=== PATIENT | female | born 1990 | race Caucasian/White ===

== ENCOUNTER 2017-10-29 17:39 | Inpatient (IN) | payer BC ==
[~2017-10-29] VITALS: Ht 157.5 cm; Wt 97.5 kg
[2017-10-29 17:45] VITALS: BP_SYST 152
[2017-10-29] MEDS ORDERED: MORPHINE 4 MG/ML INJ. SYRINGE IVP ONE (18:00)
[2017-10-29 18:23] LABS: CALCIUM 9.7 mg/dL (8.4-11.0); CREATININE 0.67 mg/dL (0.55-1.30); POTASSIUM 3.8 mmol/L (3.5-5.1)
[2017-10-29 18:24] LABS: BASOPHILS # (AUTO) 0.1 K/uL (0.0-0.2); BASOPHILS % (AUTO) 0.7 % (0.0-2.0); EOSINOPHILS # (AUTO) 0.1 K/uL (0.0-0.4); EOSINOPHILS % (AUTO) 0.6 % (0.0-4.0); HEMATOCRIT 41.7 % (36-48); HEMOGLOBIN 13.9 g/dL (12.0-16.0); LYMPHOCYTES # (AUTO) 2.1 K/uL (1.0-5.5); LYMPHOCYTES % (AUTO) 12.7 % (20.5-51.5); MEAN CORPUSCULAR HEMOGLOBIN 28 pg (27-31); MEAN CORPUSCULAR HGB CONC 33 % (32-36); MEAN CORPUSCULAR VOLUME 83 fL (79.0-98.0); MONOCYTES # (AUTO) 0.6 K/uL (0.0-1.0); MONOCYTES % (AUTO) 3.9 % (1.7-9.3); NEUTROPHILS # (AUTO) 13.4 K/uL (1.8-7.7); NEUTROPHILS % (AUTO) 82.1 % (40.0-70.0); PLATELET COUNT (AUTO) 327 K/uL (130-430); RED BLOOD CELL COUNT(AUTO) 5.01 MIL/uL (4.2-6.2); RED CELL DISTRIBUTION WIDTH 13.5 % (9.0-15.0); WHITE BLOOD COUNT (AUTO) 16.3 K/uL (4.8-10.8)
[2017-10-29 18:28] LABS: TOTAL BILIRUBIN 0.5 mg/dL (0.0-1.0)
[2017-10-29] MEDS ORDERED: cefTRIAXone 1 GM IVPB PREMIX 50 ML IV ONE (19:45)
[2017-10-29 19:50] LABS: BILIRUBIN,URINE NEGATIVE (NEGATIVE); BLOOD, URINE NEGATIVE (NEGATIVE); CLARITY/URINE SL HAZY (CLEAR); COLOR,URINE YELLOW (YELLOW); GLUCOSE,URINE NEGATIVE (NEGATIVE); KETONES,URINE TRACE (NEGATIVE); LEUKOCYTE ESTERASE ,URINE NEGATIVE (NEGATIVE); NITRITE, URINE NEGATIVE (NEGATIVE); PH,URINE 8.5 (5.0-8.0); PROTEIN URINE NEGATIVE (NEGATIVE); UROBILINOGEN,URINE 0.2 (0.2-1.0)
[2017-10-29 20:28] VITALS: BP_SYST 136
[2017-10-29] MEDS: D5/0.45 NS 1,000 ML IV SCH (21:06)
[2017-10-29] MEDS ORDERED: ONDANSETRON HCL 4 MG/2 ML VIAL IVP PRN (23:00)
[2017-10-29] MEDS ORDERED: MORPHINE 4 MG/ML INJ. SYRINGE IVP PRN (23:00)
[2017-10-29] MEDS ORDERED: LORazepam 2 MG/ML VIAL IVP PRN (23:00)
[2017-10-30] VITALS: BP_SYST 126
[2017-10-30] MEDS: D5/0.45 NS 1,000 ML IV SCH ×4 (06:19→18:53)
[2017-10-30 06:41] LABS: ALBUMIN 3.4 g/dL (3.4-4.8); CALCIUM 8.6 mg/dL (8.4-11.0); CREATININE 0.64 mg/dL (0.55-1.30); POTASSIUM 3.6 mmol/L (3.5-5.1); TOTAL BILIRUBIN 0.6 mg/dL (0.0-1.0)
[2017-10-30 06:59] LABS: BASOPHILS % (AUTO) 0.3 % (0.0-2.0); EOSINOPHILS # (AUTO) 0.2 K/uL (0.0-0.4); EOSINOPHILS % (AUTO) 1.8 % (0.0-4.0); HEMATOCRIT 37.3 % (36-48); HEMOGLOBIN 12.5 g/dL (12.0-16.0); LYMPHOCYTES # (AUTO) 3.3 K/uL (1.0-5.5); LYMPHOCYTES % (AUTO) 24.9 % (20.5-51.5); MEAN CORPUSCULAR HEMOGLOBIN 28 pg (27-31); MEAN CORPUSCULAR HGB CONC 34 % (32-36); MEAN CORPUSCULAR VOLUME 84 fL (79.0-98.0); MONOCYTES % (AUTO) 7.2 % (1.7-9.3); NEUTROPHILS # (AUTO) 8.8 K/uL (1.8-7.7); NEUTROPHILS % (AUTO) 65.8 % (40.0-70.0); PLATELET COUNT (AUTO) 268 K/uL (130-430); RED BLOOD CELL COUNT(AUTO) 4.47 MIL/uL (4.2-6.2); RED CELL DISTRIBUTION WIDTH 13.1 % (9.0-15.0); WHITE BLOOD COUNT (AUTO) 13.3 K/uL (4.8-10.8)
[2017-10-30 07:30] VITALS: BP_SYST 117
[2017-10-30] MEDS: MORPHINE 2 MG/ML INJ. SYRINGE IVP PRN ×2 (11:18→20:01)
[2017-10-30 16:00] VITALS: BP_SYST 117
[2017-10-30 20:00] VITALS: BP_SYST 105
[2017-10-30] MEDS: metroNIDAZOLE 500 mg/NS 100 ML IV SCH (21:25)
[2017-10-31] VITALS (8 sets, daily range): BP systolic 94–120
[2017-10-31] MEDS: D5/0.45 NS 1,000 ML IV SCH ×2 (04:00→19:52)
[2017-10-31] MEDS: metroNIDAZOLE 500 mg/NS 100 ML IV SCH ×3 (05:06→21:14)
[2017-10-31 06:16] LABS: BASOPHILS # (AUTO) 0.1 K/uL (0.0-0.2); BASOPHILS % (AUTO) 0.7 % (0.0-2.0); EOSINOPHILS # (AUTO) 0.4 K/uL (0.0-0.4); EOSINOPHILS % (AUTO) 3.5 % (0.0-4.0); HEMOGLOBIN 12.3 g/dL (12.0-16.0); LYMPHOCYTES # (AUTO) 2.9 K/uL (1.0-5.5); LYMPHOCYTES % (AUTO) 24.9 % (20.5-51.5); MEAN CORPUSCULAR HEMOGLOBIN 28 pg (27-31); MEAN CORPUSCULAR HGB CONC 33 % (32-36); MEAN CORPUSCULAR VOLUME 84 fL (79.0-98.0); MONOCYTES # (AUTO) 0.9 K/uL (0.0-1.0); MONOCYTES % (AUTO) 7.5 % (1.7-9.3); NEUTROPHILS # (AUTO) 7.5 K/uL (1.8-7.7); NEUTROPHILS % (AUTO) 63.4 % (40.0-70.0); PLATELET COUNT (AUTO) 265 K/uL (130-430); RED BLOOD CELL COUNT(AUTO) 4.43 MIL/uL (4.2-6.2); RED CELL DISTRIBUTION WIDTH 13.1 % (9.0-15.0); WHITE BLOOD COUNT (AUTO) 11.8 K/uL (4.8-10.8)
[2017-10-31 06:24] LABS: ALBUMIN 3.1 g/dL (3.4-4.8); C-REACTIVE PROTEIN QUANT 6.9 mg/dL (0-0.5); CALCIUM 8.4 mg/dL (8.4-11.0); CREATININE 0.73 mg/dL (0.55-1.30); POTASSIUM 3.5 mmol/L (3.5-5.1); TOTAL BILIRUBIN 0.6 mg/dL (0.0-1.0)
[2017-10-31 08:08] LABS: ERYTHROCYTE SEDIMENTATION RATE 26 MM/HR (0-20)
[2017-10-31] MEDS: cefTRIAXone 1 GM in D5W 50 ML IV SCH (09:05)
[2017-10-31] MEDS ORDERED: ONDANSETRON HCL 4 MG/2 ML VIAL IVP PRN (14:45)
[2017-10-31] MEDS ORDERED: IOHEXOL 50 ML IV ONE (15:04)
[2017-10-31] MEDS ORDERED: LR 1,000 ML IV SCH (15:37)
[2017-10-31] MEDS ORDERED: MORPHINE 4 MG/ML INJ. SYRINGE IVP PRN ×2 (15:45)
[2017-10-31] MEDS ORDERED: MORPHINE SULFATE 10 MG/ML VIAL IVP PRN (15:45)
[2017-10-31] MEDS ORDERED: MEPERIDINE HCL/PF 25 MG/ML DISP.SYRIN IVP PRN (15:45)
[2017-10-31] MEDS ORDERED: PROPOFOL 200MG/ 20ML VIAL (DIPRIVAN) IV ONE (17:15)
[2017-10-31] MEDS ORDERED: SEVOFLURANE 15 MIN GAS INH ONE (17:15)
[2017-10-31] MEDS ORDERED: ROCURONIUM BROMIDE 10 MG/ML (ZEMURON) ONE (17:15)
[2017-10-31] MEDS ORDERED: SUCCINYLCHOLINE CHLORIDE 20 MG/ML(QUELICIN) ONE (17:15)
[2017-10-31] MEDS ORDERED: MIDAZOLAM HCL 5 MG/ML VIAL (VERSED) IV ONE (17:15)
[2017-10-31] MEDS ORDERED: METOCLOPRAMIDE HCL 10 MG/2 ML VIAL ONE (17:15)
[2017-10-31] MEDS ORDERED: ONDANSETRON HCL 4 MG/2 ML VIAL ONE (17:15)
[2017-10-31] MEDS ORDERED: fentaNYL CITRATE 250 MCG/5 ML AMP ONE (17:15)
[2017-10-31] MEDS ORDERED: KETOROLAC TROMETHAMINE 30 MG VIAL ONE (17:15)
[2017-10-31] MEDS ORDERED: DEXAMETHASONE SOD PHOSPHATE 4 MG/ML VIAL ONE (17:15)
[2017-10-31] MEDS ORDERED: LR 1,000 ML IV.SOLN IV ONE (17:15)
[2017-10-31] MEDS: MORPHINE 4 MG/ML INJ. SYRINGE IVP PRN ×2 (18:45→19:15)
[2017-10-31] MEDS: ACETAMINOPHEN/CODEINE 300 MG-30 MG TABLET PO PRN (23:04)
[2017-11-01] VITALS (7 sets, daily range): BP systolic 106–145
[2017-11-01] MEDS: ACETAMINOPHEN/CODEINE 300 MG-30 MG TABLET PO PRN ×4 (03:06→20:20)
[2017-11-01] MEDS: metroNIDAZOLE 500 mg/NS 100 ML IV SCH ×3 (05:08→21:02)
[2017-11-01] MEDS: D5/0.45 NS 1,000 ML IV SCH ×3 (05:09→20:22)
[2017-11-01 06:30] LABS: BASOPHILS % (AUTO) 0.2 % (0.0-2.0); EOSINOPHILS % (AUTO) 0.3 % (0.0-4.0); HEMOGLOBIN 10.3 g/dL (12.0-16.0); LYMPHOCYTES # (AUTO) 1.1 K/uL (1.0-5.5); LYMPHOCYTES % (AUTO) 7.3 % (20.5-51.5); MEAN CORPUSCULAR HEMOGLOBIN 29 pg (27-31); MEAN CORPUSCULAR HGB CONC 34 % (32-36); MEAN CORPUSCULAR VOLUME 84 fL (79.0-98.0); MONOCYTES # (AUTO) 0.7 K/uL (0.0-1.0); MONOCYTES % (AUTO) 4.7 % (1.7-9.3); NEUTROPHILS # (AUTO) 12.9 K/uL (1.8-7.7); NEUTROPHILS % (AUTO) 87.5 % (40.0-70.0); PLATELET COUNT (AUTO) 295 K/uL (130-430); RED BLOOD CELL COUNT(AUTO) 3.58 MIL/uL (4.2-6.2); RED CELL DISTRIBUTION WIDTH 13.1 % (9.0-15.0); WHITE BLOOD COUNT (AUTO) 14.7 K/uL (4.8-10.8)
[2017-11-01 06:56] LABS: C-REACTIVE PROTEIN QUANT 6.8 mg/dL (0-0.5); CALCIUM 8.1 mg/dL (8.4-11.0); CREATININE 0.66 mg/dL (0.55-1.30); POTASSIUM 4.3 mmol/L (3.5-5.1)
[2017-11-01 07:48] LABS: ERYTHROCYTE SEDIMENTATION RATE 43 MM/HR (0-20)
[2017-11-01] MEDS: cefTRIAXone 1 GM in D5W 50 ML IV SCH (08:26)
[2017-11-01] MEDS ORDERED: SIMETHICONE 80 MG TAB.CHEW PO PRN (21:45)
[2017-11-02] VITALS: BP_SYST 103
[2017-11-02] MEDS: ACETAMINOPHEN/CODEINE 300 MG-30 MG TABLET PO PRN ×2 (05:08→15:19)
[2017-11-02] MEDS: metroNIDAZOLE 500 mg/NS 100 ML IV SCH ×2 (05:09→14:15)
[2017-11-02] MEDS: D5/0.45 NS 1,000 ML IV SCH ×2 (06:14→16:53)
[2017-11-02 06:24] LABS: BASOPHILS # (AUTO) 0.1 K/uL (0.0-0.2); BASOPHILS % (AUTO) 0.6 % (0.0-2.0); EOSINOPHILS # (AUTO) 0.1 K/uL (0.0-0.4); EOSINOPHILS % (AUTO) 0.6 % (0.0-4.0); HEMATOCRIT 24.2 % (36-48); HEMOGLOBIN 8.2 g/dL (12.0-16.0); LYMPHOCYTES # (AUTO) 3.8 K/uL (1.0-5.5); MEAN CORPUSCULAR HEMOGLOBIN 29 pg (27-31); MEAN CORPUSCULAR HGB CONC 34 % (32-36); MEAN CORPUSCULAR VOLUME 84 fL (79.0-98.0); MONOCYTES # (AUTO) 0.9 K/uL (0.0-1.0); MONOCYTES % (AUTO) 6.4 % (1.7-9.3); NEUTROPHILS # (AUTO) 8.6 K/uL (1.8-7.7); NEUTROPHILS % (AUTO) 64.4 % (40.0-70.0); PLATELET COUNT (AUTO) 248 K/uL (130-430); RED BLOOD CELL COUNT(AUTO) 2.88 MIL/uL (4.2-6.2); RED CELL DISTRIBUTION WIDTH 13.3 % (9.0-15.0); WHITE BLOOD COUNT (AUTO) 13.5 K/uL (4.8-10.8)
[2017-11-02 06:27] LABS: C-REACTIVE PROTEIN QUANT 6.4 mg/dL (0-0.5); CALCIUM 7.8 mg/dL (8.4-11.0); CREATININE 0.67 mg/dL (0.55-1.30); POTASSIUM 3.5 mmol/L (3.5-5.1)
[2017-11-02 08:06] VITALS: BP_SYST 114
[2017-11-02 09:06] LABS: ERYTHROCYTE SEDIMENTATION RATE 53 MM/HR (0-20)
[2017-11-02] MEDS: cefTRIAXone 1 GM in D5W 50 ML IV SCH (09:30)
[2017-11-02] MEDS ORDERED: TYC3 PO (11:16)
[2017-11-02] MEDS ORDERED: MYL80 PO (11:16)
[2017-11-02 12:35] VITALS: BP_SYST 122
[2017-11-02 16:35] VITALS: BP_SYST 114
== END 2017-11-02 17:25 | disposition home or self-care (01) | DRG 418 ==
LOC: SED 17:39 → SMU 20:02
PROVIDERS: ADMIT Preventive Medicine Preventive Medicine/Occupational Environmental Medicine; ATTEND Preventive Medicine Preventive Medicine/Occupational Environmental Medicine
PROC: 0FN44ZZ Release Gallbladder, Percutaneous Endoscopic Approach (ICD-10-PCS; 2017-10-31)
PROC: BF131ZZ Fluoroscopy of Gallbladder and Bile Ducts using Low Osmolar Contrast (ICD-10-PCS; 2017-10-31)
PROC: 0FT44ZZ Resection of Gallbladder, Percutaneous Endoscopic Approach (ICD-10-PCS; principal; 2017-10-31 15:30)
DX: K80.12 Calculus of gallbladder with acute and chronic cholecystitis without obstruction (principal); R65.10 Systemic inflammatory response syndrome (SIRS) of non-infectious origin without acute organ dysfunction; K21.9 Gastro-esophageal reflux disease without esophagitis; E55.9 Vitamin D deficiency, unspecified; R73.9 Hyperglycemia, unspecified; J45.909 Unspecified asthma, uncomplicated; E83.51 Hypocalcemia; D64.9 Anemia, unspecified; E66.9 Obesity, unspecified; K66.0 Peritoneal adhesions (postprocedural) (postinfection); Z68.39 Body mass index [BMI] 39.0-39.9, adult
CPT/HCPCS: 36415; 74300; 76700-TC; 80048; 80053; 81003; 82962; 83690-TC; 84702-TC; 85025; 85651-TC; 86140; 87040-TC; 87070; 87070-TC; 87075-TC; 87081; 88304; 94010; 96365; 96375; 99285; C1727; J0330; J0696; J1100; J1885; J2250; J2270; J2405; J2704; J2765; J3010; J3490; J7030; J7060; J7120; Q9967

== ENCOUNTER 2017-11-06 14:10 | Emergency (ER) | payer BC ==
[~2017-11-06] VITALS: Ht 157.5 cm; Wt 94.8 kg
[~2017-11-06 14:10] MED LIST: MYL80 PO; TYC3 PO
[2017-11-06 14:11] VITALS: BP_SYST 139
[2017-11-06 14:55] VITALS: BP_SYST 139
== END 2017-11-06 14:55 | disposition home or self-care (01) ==
LOC: SED 14:10
DX: Z48.01 Encounter for change or removal of surgical wound dressing (principal); Z90.49 Acquired absence of other specified parts of digestive tract
CPT/HCPCS: 99281